=== PATIENT | female | born 1975 | race American Indian/Alaskan Native ===

== ENCOUNTER 2016-11-09 10:07 | Emergency (ER) | payer OTHER ==
[2016-11-09 11:05] VITALS: TEMP 98.5; O2SAT 99; BMI 29.2
--- NOTE | 2016-11-09 11:05 | ED PDOC ---
Arrival/HPI - General Historian: Patient - History of Present Illness Time/Duration: Other (1 week) Symptom Course: Worsening Quality: Other (itchy ) Context: Home <Kaylin Amaral - Last Filed: 11/09/16 12:32> <Bry Andersen P - Last Filed: 11/09/16 14:14> - General Chief Complaint: Abnormal Skin Integrity Time Seen by Provider: 11/09/16 10:30 - History of Present Illness Narrative History of Present Illness (Text): 11/09/16 11:00 Patient is a 41 y/o with no significant pmh presenting with rash on the face and edges of the scalp. Patient states on she had motion chemical relaxant applied to the edges of her hair, she went to [place], was mostly under the sun, then she noticed a rash at the edge of her hair. Patient states the rash is now spreading to the face and lip, and the rash is pruritic. Patient denies fever, chills, n/v/d. Denies chest pain or sob. patient states while she has used chemical relaxant in the past, this is the first time she used this brand. Her scalp was burning during the application. (Kaylin Amaral) Past Medical History - Provider Review Nursing Documentation Reviewed: Yes - Travel History Have you recently traveled outside [place] w/in the past 3 mons?: No <Kaylin Amaral - Last Filed: 11/09/16 12:32> Family/Social History - Physician Review Nursing Documentation Reviewed: Yes Family/Social History: No Known Family HX Smoking Status: Never Smoked Hx Alcohol Use: No <Kaylin Amaral - Last Filed: 11/09/16 12:32> Allergies/Home Meds <Kaylin Amaral - Last Filed: 11/09/16 12:32> <Bry Andersen P - Last Filed: 11/09/16 14:14> Allergies/Adverse Reactions: Allergies Penicillins Adverse Reaction (Verified 11/09/16 11:08) PAIN Review of Systems - Review of Systems Constitutional: Normal Eyes: Normal ENT: Normal Respiratory: Normal Cardiovascular: Normal Gastrointestinal: Normal Genitourinary Female: Normal Musculoskeletal: Normal Skin: Rash, Pruritis (at the edges of the scalp.). absent: Laceration, Abscess , Ulcer, Cellulitis Neurological: Normal Endocrine: Normal Hemo/Lymphatic: Normal Psychiatric: Normal <Kaylin Amaral - Last Filed: 11/09/16 12:32> Physical Exam Vital Signs Reviewed: Yes Temperature: Afebrile Blood Pressure: Normal Pulse: Regular Respiratory Rate: Normal Appearance: Positive for: Well-Appearing, Non-Toxic, Comfortable Pain Distress: None Mental Status: Positive for: Alert and Oriented X 3 - Systems Exam Head: Present: Atraumatic, Normocephalic Mouth: Present: Moist Mucous Membranes Neck: Present: Normal Range of Motion Respiratory/Chest: Present: Clear to Auscultation, Good Air Exchange. No: Respiratory Distress, Wheezes, Decreased Breath Sounds, Retracting, Rhonchi, Tachypneic Cardiovascular: Present: Regular Rate and Rhythm, Normal S1, S2. No: Murmurs, Tachycardic, Bradycardic Abdomen: Present: Normal Bowel Sounds. No: Tenderness, Distention Upper Extremity: Present: Normal Inspection. No: Cyanosis, Edema Lower Extremity: Present: Normal Inspection. No: Edema Neurological: Present: GCS=15 Skin: Present: Warm, Rashes, Other (acneaform, mixed with dry, crusted rash at the edges of the scalp and face. no drainage, no erythema. ) Psychiatric: Present: Alert, Oriented x 3, Normal Insight, Normal Concentration <Kaylin Amaral - Last Filed: 11/09/16 12:32> Medical Decision Making <Kaylin Amaral - Last Filed: 11/09/16 12:32> <Bry Andersen - Last Filed: 11/09/16 14:14> ED Course and Treatment: 11/09/16 11:15 Patient is a 41 y/o with no significant pmh presenting with rash at the edges of the scalp and face after using chemical relaxer, and pruritus. Differentials: less likely cellulites, less likely abscess. More like skin irritation from chemical burn. Plan: will give topical Benadryl and mupirocin ointment. Discussed with Dr Andersen. 11/09/16 12:33 Patient is to be discharged home with the mupirocin cream and Benadryl cream. Instructed to follow up with PMD, return if worsens. (Kaylin Amaral) 11/09/16 11:49 Patient Seen With Resident: In agreement with resident note. Patient was seen and evaluated with resident, came up with plan and treatment together. (Bry Andersen) - Medication Orders Current Medication Orders: Discontinued Medications Diphenhydramine HCl (Benadryl Maximum Strength 1%) 1 ea TOP Q6H STA Stop: 11/09/16 11:29 Last Admin: 11/09/16 12:02 Dose: 1 appful Mupirocin (Bactroban Ointment) 1 gm TOP BID TORI Last Admin: 11/09/16 12:02 Dose: 1 appful <Kaylin Amaral - Last Filed: 11/09/16 12:32> - Scribe Statement The provider has reviewed the documentation as recorded by the Scribe <Bry Andersen - Last Filed: 11/09/16 14:14> - Scribe Statement Monika Hinkle Provider Scribe Attestation: All medical record entries made by the Scribe were at my direction and personally dictated by me. I have reviewed the chart and agree that the record accurately reflects my personal performance of the history, physical exam, medical decision making, and the department course for this patient. I have also personally directed, reviewed, and agree with the discharge instructions and disposition. (Bry Andersen) Disposition/Present on Arrival - Present on Arrival Any Indicators Present on Arrival: No History of DVT/PE: No History of Uncontrolled Diabetes: No Urinary Catheter: No History of Decub. Ulcer: No - Disposition Have Diagnosis and Disposition been Completed?: Yes Disposition Time: 12:00 Patient Plan: Discharge <Kaylin Amaral - Last Filed: 11/09/16 12:32> <Bry Andersen - Last Filed: 11/09/16 14:14> - Disposition Diagnosis: Scalp irritation Disposition: HOME/ ROUTINE Condition: STABLE Discharge Instructions (ExitCare): Chemical Skin Burn (ED) Additional Instructions: Please use the cream as prescribed. Return to the ED if the symptoms worsens or if you have new symptoms. Prescriptions: Diphenhydramine HCl/Zinc Acet [Benadryl Itch Stopping Crm] 28.3 gm TP DAILY PRN #1 cream..g. PRN Reason: Itching / Pruritus Mupirocin 2% Cream [Bactroban Cream] 30 applic EXT DAILY #1 tube Referrals: Raza Del Castillo MD [Primary Care Provider] - Follow up with primary Forms: WORK NOTE
[2016-11-09] MEDS ORDERED: DiphenhydrAMINE 1% 1 EA TUBE TOP STA (11:28)
[2016-11-09 11:40] VITALS: RESP 18
[2016-11-09 12:18] VITALS: BP 115/65; PULSE 69
== END 2016-11-09 12:19 | disposition home or self-care (01) ==
LOC: ED 10:07
DX: L98.9 Disorder of the skin and subcutaneous tissue, unspecified (principal)

== ENCOUNTER 2016-11-10 15:47 | Emergency (ER) | payer OTHER ==
[2016-11-10 15:48] VITALS: BMI 29.2
--- NOTE | 2016-11-10 16:05 | ED PDOC ---
Arrival/HPI - General Time Seen by Provider: 11/10/16 16:02 - History of Present Illness Narrative History of Present Illness (Text): 41F c/o itchy rash on her forehead and back of neck for the last week since using a new hair relaxer. she has washed her hair mult times since using the product and was here yesterday. I saw her and rx mupirocin but she says rash is worse today and spreading to her face. Past Medical History - Pulmonary Hx Respiratory Disorders: No - Neurological Hx Neurological Disorder: No - HEENT Hx HEENT Disorder: No - Renal Hx Renal Disorder: No - Endocrine/Metabolic Hx Endocrine Disorders: No - Hematological/Oncological Hx Blood Disorders: No - Integumentary Hx Dermatological Disorder: Yes Other/Comment: derm allergic reaction - Musculoskeletal/Rheumatological Hx Musculoskeletal Disorders: No - Gastrointestinal Hx Gastrointestinal Disorders: No - Genitourinary/Gynecological Hx Genitourinary Disorders: No - Psychiatric Hx Psychophysiologic Disorder: No Hx Substance Use: No - Surgical History Hx Section: Yes (2002) - Anesthesia Hx Anesthesia: No Hx Anesthesia Reactions: No Hx Malignant Hyperthermia: No Family/Social History Family/Social History: Other (nc) Smoking Status: Never Smoked Hx Alcohol Use: No Hx Substance Use: No Allergies/Home Meds Allergies/Adverse Reactions: Allergies Penicillins Adverse Reaction (Verified 11/09/16 11:08) PAIN Review of Systems - Review of Systems Constitutional: absent: Fatigue, Fevers Respiratory: absent: SOB Gastrointestinal: absent: Vomiting Skin: Rash Physical Exam Appearance: Positive for: Well-Appearing, Non-Toxic Pain Distress: None Mental Status: Positive for: Alert and Oriented X 3 - Systems Exam Head: Present: Atraumatic, Normocephalic Pupils: Present: PERRL Extroacular Muscles: Present: EOMI Mouth: Present: Moist Mucous Membranes, Other (no intra-oral lesions) Neck: Present: Normal Range of Motion Respiratory/Chest: No: Respiratory Distress, Accessory Muscle Use Cardiovascular: Present: Regular Rate and Rhythm Skin: Present: Other (there is a weeping and crusted rash around the front hairline. there are some scattered lesions on the face and back of the neck.) Psychiatric: Present: Alert, Oriented x 3 Medical Decision Making ED Course and Treatment: continue mupirocin will ad po abx and also steroids for itching Disposition/Present on Arrival - Present on Arrival Any Indicators Present on Arrival: No History of DVT/PE: No History of Uncontrolled Diabetes: No Urinary Catheter: No History Surgical Site Infection Following: None - Disposition Have Diagnosis and Disposition been Completed?: Yes Diagnosis: Impetigo, Dermatitis Disposition: HOME/ ROUTINE Disposition Time: 16:03 Condition: GOOD Referrals: Barrett Del Castillo MD [Primary Care Provider] - Follow up with primary
[2016-11-10 16:10] VITALS: BP 146/76; PULSE 65; RESP 18; TEMP 98.8; O2SAT 100
== END 2016-11-10 16:54 | disposition home or self-care (01) ==
LOC: ED 15:47
DX: L01.00 Impetigo, unspecified (principal); L30.9 Dermatitis, unspecified

== ENCOUNTER 2018-06-24 09:15 | Emergency (ER) | payer OTHER ==
[2018-06-24 09:16] VITALS: BMI 29.2
[2018-06-24 09:39] VITALS: RESP 18; O2SAT 99
--- NOTE | 2018-06-24 10:15 | ED PDOC ---
Arrival/HPI - General Chief Complaint: Abnormal Skin Integrity Time Seen by Provider: 06/24/18 09:30 Historian: Patient - History of Present Illness Narrative History of Present Illness (Text): 06/24/18 10:11 43 year old female, with no significant past medical history, presents to the ED for evaluation of rash to forehead and left eyelid swelling since this morning. Patient informs trying a new dye test strand 2 days ago without any immediate adverse reaction. Patient reports feeling mild pain associated with rash to forehead, worse from similar allergic reactions in the past, prompting her to present to the ED for evaluation. Patient informs taking oral Benadryl as well as application of topical Benadryl without any significant improvement to symptoms. Patient denies any other associated somatic complaints. Patient denies any fevers, chills, headache, dizziness, chest pain, shortness of breath, dyspnea on exertion, cough, abdominal pain, nausea, vomiting, diarrhea, back pain, neck pain, or any other complaints. PMD: Dr. Del Castillo Time/Duration: 24 hours Symptom Onset: Gradual Symptom Course: Unchanged Activities at Onset: Light Context: Home Past Medical History - Provider Review Nursing Documentation Reviewed: Yes - Infectious Disease Hx of Infectious Diseases: None - Reproductive Menopause: No Currently : Unknown - Cardiac Hx Cardiac Disorders: No - Pulmonary Hx Respiratory Disorders: No - Neurological Hx Neurological Disorder: No - HEENT Hx HEENT Disorder: No - Renal Hx Renal Disorder: No - Endocrine/Metabolic Hx Endocrine Disorders: No - Hematological/Oncological Hx Blood Disorders: No - Integumentary Hx Dermatological Disorder: Yes Other/Comment: derm allergic reaction - Musculoskeletal/Rheumatological Hx Musculoskeletal Disorders: No - Gastrointestinal Hx Gastrointestinal Disorders: No - Genitourinary/Gynecological Hx Genitourinary Disorders: No - Psychiatric Hx Psychophysiologic Disorder: No Hx Substance Use: No - Surgical History Hx Section: Yes (2002) - Anesthesia Hx Anesthesia: No Hx Anesthesia Reactions: No Hx Malignant Hyperthermia: No Family/Social History - Physician Review Nursing Documentation Reviewed: Yes Family/Social History: No Known Family HX Smoking Status: Never Smoked Hx Alcohol Use: No Hx Substance Use: No Allergies/Home Meds Allergies/Adverse Reactions: Allergies Penicillins Adverse Reaction (Verified 11/09/16 11:08) PAIN Review of Systems - Physician Review All systems were reviewed & negative as marked: Yes - Review of Systems Constitutional: absent: Fatigue, Fevers Eyes: absent: Vision Changes, Photophobia, Eye Pain ENT: absent: Hearing Changes, Tinnitus Respiratory: absent: SOB, Cough Cardiovascular: absent: Chest Pain Gastrointestinal: absent: Abdominal Pain, Diarrhea, Nausea, Vomiting Genitourinary Female: absent: Dysuria, Urine Output Changes Musculoskeletal: absent: Back Pain, Neck Pain Skin: Rash (forehead) Neurological: absent: Headache, Dizziness Psychiatric: absent: Anxiety Physical Exam Vital Signs Reviewed: Yes Vital Signs Temp Pulse Resp BP Pulse Ox 06/24/18 09:29 992 F H 84 18 127/60 99 Temperature: Afebrile Blood Pressure: Normal Pulse: Regular Respiratory Rate: Normal Appearance: Positive for: Well-Appearing, Non-Toxic, Comfortable Pain Distress: None Mental Status: Positive for: Alert and Oriented X 3 - Systems Exam Head: Present: Atraumatic, Normocephalic. No: Swelling, Ecchymosis Pupils: Present: PERRL Extroacular Muscles: Present: EOMI Conjunctiva: Present: Normal Ears: Present: Normal, NORMAL TM Mouth: Present: Moist Mucous Membranes Pharnyx: Present: Normal. No: ERYTHEMA, EXUDATE Nose (External): Present: Atraumatic Neck: Present: Normal Range of Motion. No: Meningeal Signs Respiratory/Chest: Present: Clear to Auscultation, Good Air Exchange. No: Respiratory Distress, Accessory Muscle Use Cardiovascular: Present: Regular Rate and Rhythm, Normal S1, S2. No: Murmurs Abdomen: Present: Normal Bowel Sounds. No: Tenderness, Distention, Peritoneal Signs Back: Present: Normal Inspection. No: CVA Tenderness Upper Extremity: Present: Normal Inspection. No: Cyanosis, Edema Lower Extremity: Present: Normal Inspection. No: Edema Neurological: Present: GCS=15, CN II-XII Intact, Speech Normal Skin: Present: Warm, Dry, Normal Color, Other (scaly-like rash to exposure area of the test strip on L scalp, puritic, mildly erythematous, no vesicles, no mastoid involvement, no TM involvement) Psychiatric: Present: Alert, Oriented x 3, Normal Insight, Normal Concentration Medical Decision Making ED Course and Treatment: 06/24/18 10:18 Impression: 43 year old female presents to the ED for evaluation of rash to L scalp. No forehead involvement. No eye or orbit involvement on exam. Pt notes mild to no relief with benadryl. Likely allergic reaction. 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 No respiratory complaints or throat complaints. No urticaria. Non vesicular rash. Vaccines fully UTD. Plan: -- Reassess and disposition Prior Visits: Notes and results from previous visits were reviewed. Progress Notes: 06/24/18 10:50 endorsed d/c hair dyes and treatments until resolution of symptoms. will rx for potential infx given healthcare worker given topical steroids pt notes has benadryl at home clear for d/c home with return indication and followup - Scribe Statement The provider has reviewed the documentation as recorded by the Scribe Efren Ayers. All medical record entries made by the Scribe were at my direction and personally dictated by me. I have reviewed the chart and agree that the record accurately reflects my personal performance of the history, physical exam, medical decision making, and the department course for this patient. I have also personally directed, reviewed, and agree with the discharge instructions and disposition. Disposition/Present on Arrival - Present on Arrival Any Indicators Present on Arrival: No History of DVT/PE: No History of Uncontrolled Diabetes: No Urinary Catheter: No History of Decub. Ulcer: No History Surgical Site Infection Following: None - Disposition Have Diagnosis and Disposition been Completed?: Yes Diagnosis: Dermatitis, Allergic contact dermatitis due to hairdressing product Disposition: HOME/ ROUTINE Disposition Time: 10:40 Patient Problems: Current Active Problems Problem Status Onset Allergic contact dermatitis due to hairdressing product Acute Condition: GOOD Discharge Instructions (ExitCare): Dermatitis, Skin Rash (DC), Topical Corticosteroid Medicines Additional Instructions: USE OVER THE COUNTER STEROID MEDICATIONS AND TAKE THE ANTIBIOTICS PRESCRIBED. RETURN IF SIDE EFFECTS OR NON IMPROVEMENT OR ANY OTHER ISSUES. THERON VNACE, thank you for letting us take care of you today. Your provider was Hector Garcia and you were treated for facial problem ( swollen face). The emergency medical care you received today was directed at your acute symptoms. If you were prescribed any medication, please fill it and take as directed. It may take several days for your symptoms to resolve. Return to the Emergency Department if your symptoms worsen, do not improve, or if you have any other problems. Please contact your doctor or call one of the physicians/clinics you have been referred to that are listed on the Patient Visit Information form that is included in your discharge packet. Bring any paperwork you were given at discharge with you along with any medications you are taking to your follow up visit. Our treatment cannot replace ongoing medical care by a primary care provider outside of the emergency department. Thank you for allowing the [facility] team to be part of your care today. If you had an X-Ray or CT scan: A Radiologist will review the ED reading if any change in treatment is needed we will contact you. If you had a blood, urine, or wound culture: It will take several days for the results, if any change in treatment is needed we will contact you. If you had an STI test: It will take 48 hours for the results. Please call after 1 week if you have not heard back. Prescriptions: RX: Doxycycline Hyclate 100 mg PO Q12H 5 Days #10 capsule RX: Hydrocortisone 0.5% 1 applic TOP BID #1 tube Referrals: Carlos Wood MD [Staff Provider] - Follow up with primary Barrett Del Castillo MD [Family Provider] - Follow up with primary [facility] [Outside] - Follow up with primary [facility] [Outside] - Follow up with primary [facility] [Outside] - Follow up with primary Forms: [facility] ([place]i)
[2018-06-24 10:56] VITALS: BP 126/73; PULSE 75; TEMP 99
== END 2018-06-24 11:03 | disposition home or self-care (01) ==
LOC: ED 09:15
DX: L23.9 Allergic contact dermatitis, unspecified cause (principal)

== ENCOUNTER 2018-06-24 14:48 | Emergency (ER) | payer OTHER ==
[2018-06-24 14:48] VITALS: BMI 29.2
[2018-06-24 15:00] VITALS: TEMP 98.5; O2SAT 100
[2018-06-24] MEDS ORDERED: DiphenhydrAMINE 50 mg/ml Inj IVP STA (15:13)
--- NOTE | 2018-06-24 16:14 | ED PDOC ---
Arrival/HPI - General Chief Complaint: Allergic Reaction Time Seen by Provider: 06/24/18 15:01 Historian: Patient - History of Present Illness Narrative History of Present Illness (Text): 06/24/18 15:57 43yo female with no past medical history who present with complaint of generalized pruriritc rash and left eye periorbital swelling, headache. Patient states she developed a reaction s/p using a hair shampoo yesterday. Notes that she was seen here earlier and discharged, but the eye swelling became worse with the pruriitic rash. She however denies tongue swelling, SOB, chest pain, drooling, stridor, any other complaint. Past Medical History - Provider Review Nursing Documentation Reviewed: Yes - Infectious Disease Hx of Infectious Diseases: None - Reproductive Menopause: No Currently : No - Cardiac Hx Cardiac Disorders: No - Pulmonary Hx Respiratory Disorders: No - Neurological Hx Neurological Disorder: No - HEENT Hx HEENT Disorder: No - Renal Hx Renal Disorder: No - Endocrine/Metabolic Hx Endocrine Disorders: No - Hematological/Oncological Hx Blood Disorders: No - Integumentary Hx Dermatological Disorder: Yes Other/Comment: derm allergic reaction - Musculoskeletal/Rheumatological Hx Musculoskeletal Disorders: No - Gastrointestinal Hx Gastrointestinal Disorders: No - Genitourinary/Gynecological Hx Genitourinary Disorders: No - Psychiatric Hx Psychophysiologic Disorder: No Hx Substance Use: No - Surgical History Hx Section: Yes (2002) - Anesthesia Hx Anesthesia: No Hx Anesthesia Reactions: No Hx Malignant Hyperthermia: No Family/Social History - Physician Review Nursing Documentation Reviewed: Yes Family/Social History: Unknown Family HX Smoking Status: Never Smoked Hx Alcohol Use: No Hx Substance Use: No Allergies/Home Meds Allergies/Adverse Reactions: Allergies Penicillins Adverse Reaction (Verified 11/09/16 11:08) PAIN Review of Systems - Physician Review All systems were reviewed & negative as marked: Yes - Review of Systems Constitutional: Normal Eyes: Normal ENT: Normal Respiratory: Normal Cardiovascular: Normal Gastrointestinal: Normal Genitourinary Female: Normal Musculoskeletal: Normal Skin: Rash, Pruritis, Other (Left periorbital swelling) Neurological: Normal Endocrine: Normal Hemo/Lymphatic: Normal Psychiatric: Normal Physical Exam Vital Signs Reviewed: Yes Vital Signs Temp Pulse Resp BP Pulse Ox 06/24/18 14:56 98.5 F 88 20 138/80 100 Temperature: Afebrile Blood Pressure: Normal Pulse: Regular Respiratory Rate: Normal Appearance: Positive for: Well-Appearing, Non-Toxic, Comfortable Pain Distress: None Mental Status: Positive for: Alert and Oriented X 3 - Systems Exam Head: Present: Atraumatic, Normocephalic Pupils: Present: PERRL Extroacular Muscles: Present: EOMI (Left periorbital swelling noted), Other (Left periorbital swelling) Conjunctiva: Present: Normal Mouth: Present: Moist Mucous Membranes Neck: Present: Normal Range of Motion Respiratory/Chest: Present: Clear to Auscultation, Good Air Exchange. No: Respiratory Distress, Accessory Muscle Use Cardiovascular: Present: Regular Rate and Rhythm, Normal S1, S2. No: Murmurs Abdomen: No: Tenderness, Distention, Peritoneal Signs Back: Present: Normal Inspection Upper Extremity: Present: Normal Inspection. No: Cyanosis, Edema Lower Extremity: Present: Normal Inspection. No: Edema Neurological: Present: GCS=15, CN II-XII Intact, Speech Normal Skin: Present: Warm, Dry, Rashes (Hives noted on forehead and b/l arm), Normal Color Psychiatric: Present: Alert, Oriented x 3, Normal Insight, Normal Concentration Medical Decision Making ED Course and Treatment: 06/24/18 18:34 Pt presented to ED for stated history. She was not in any distress. No drooling. No stridor noted She was treated with pepcid, solu medrol and Benadryl in emergency department . On re evaluation her symptoms improved. she was DC home with pepcid, prednisone and Benadryl. Advised to continue with the elley as directed and follow up with her PMd/[facility] emergency department for any new or worsening symptoms - Medication Orders Current Medication Orders: Discontinued Medications Diphenhydramine HCl (Benadryl) 25 mg IVP STAT STA Stop: 06/24/18 15:14 Last Admin: 06/24/18 15:49 Dose: 25 mg IVP Administration Document 06/24/18 15:49 EQ (Rec: 06/24/18 15:49 EQ [id number]) Charges for Administration # of IVP Administrations 1 Famotidine (Pepcid) 20 mg IVP STAT STA Stop: 06/24/18 15:14 Last Admin: 06/24/18 15:49 Dose: 20 mg IVP Administration Document 06/24/18 15:49 EQ (Rec: 06/24/18 15:49 EQ [id number]) Charges for Administration # of IVP Administrations 1 Methylprednisolone (Solu-Medrol) 125 mg IVP STAT STA Stop: 06/24/18 15:15 Last Admin: 06/24/18 15:49 Dose: 125 mg IVP Administration Document 06/24/18 15:49 EQ (Rec: 06/24/18 15:49 EQ [id number]) Charges for Administration # of IVP Administrations 1 Disposition/Present on Arrival - Present on Arrival Any Indicators Present on Arrival: No History of DVT/PE: No History of Uncontrolled Diabetes: No Urinary Catheter: No History of Decub. Ulcer: No History Surgical Site Infection Following: None - Disposition Have Diagnosis and Disposition been Completed?: Yes Diagnosis: Allergic contact dermatitis due to hairdressing product Disposition: HOME/ ROUTINE Disposition Time: 17:05 Patient Plan: Discharge Condition: STABLE Discharge Instructions (ExitCare): Hives (DC) Additional Instructions: Follow up with your doctor/[facility] Return to emergency department for any new or worsening symptoms Prescriptions: DiphenhydrAMINE [Benadryl] 25 mg PO Q6 #20 cap Famotidine [Pepcid] 20 mg PO DAILY #10 tab predniSONE [Prednisone] 20 mg PO BID #8 tab Referrals: Barrett Del Castillo MD [Primary Care Provider] - Follow up with primary Carlos Wood MD [Staff Provider] - Follow up with primary Forms: [employer] (Czech), WORK NOTE
[2018-06-24 17:58] VITALS: BP 122/65; PULSE 75; RESP 18
== END 2018-06-24 17:56 | disposition home or self-care (01) ==
LOC: ED 14:48
DX: L23.9 Allergic contact dermatitis, unspecified cause (principal)
CPT/HCPCS: 81025; 96374; 96375; 99284; J1200; J2930